=== PATIENT | female | born 1970 | race Caucasian/White ===

== ENCOUNTER 2023-07-09 08:03 | Day surgery (SDC) | payer OTHER ==
--- NOTE | 2023-07-02 15:26 | HP ---
DATE OF SURGERY: 07/09/2023 HISTORY OF PRESENT ILLNESS: The patient is a 53-year-old female presents for endoscopy. She had a colonoscopy about 2014 with some polyps on it. She has no symptoms at this time. She had a heart attack with some stent placement. She has been off her Brilinta per Dr. Levine. She did state that on last scope they did not get to the cecum but not for sure of that. She has had a couple inpatient episodes of diverticulitis in the past. PAST MEDICAL HISTORY: Coronary artery disease. Myocardial infarction. Diabetes. Hypertension. PAST SURGICAL HISTORY: Cholecystectomy. Hysterectomy. Left leg surgery. section. Cardiac stent. ALLERGIES: NKDA. ADHESIVE TAPE. MEDICATIONS: Jardiance, Lopressor, Metformin, lisinopril. FAMILY HISTORY: Diabetes. SOCIAL HISTORY: Former smoker, occasional alcohol. REVIEW OF SYSTEMS: CONSTITUTIONAL: Denies fever or chills. CHEST: Denies shortness of breath. CVS: Denies chest pain. ABDOMEN: Denies abdominal pain. PHYSICAL EXAMINATION: GENERAL: No acute distress. CHEST: Nonlabored. No shortness of breath. CVS: Regular rate and rhythm. ABDOMEN: Soft. IMPRESSION: Screening. PLAN: Colonoscopy with Dr. Gilberto Colunga. As dictated by Dominique Hong NP.
[2023-07-09] MEDS ORDERED: Lactated Ringers 1,000 ML IV ONE (08:23)
[2023-07-09] MEDS ORDERED: Lactated Ringers 1,000 ML IV SCH (08:30)
[2023-07-09] MEDS ORDERED: DIPRIVAN 200 MG/20 ML IV ONE ×2 (10:29→10:51)
[2023-07-09] MEDS ORDERED: Versed 2 MG/2 ML Injection ONE (10:29)
[2023-07-09] MEDS ORDERED: SUBLIMAZE 100 MCG/2 ML ONE (10:45)
[2023-07-09] MEDS ORDERED: GlucaGen 1 MG ONE (10:46)
[2023-07-09] MEDS ORDERED: PHENYLEPHRINE HCL ONE (11:09)
--- NOTE | 2023-07-09 11:32 | OP ---
SURGERY DATE/TIME: 07/09/2023 1042 PREOPERATIVE DIAGNOSIS: Screening. POSTOPERATIVE DIAGNOSIS: Two polyps. PROCEDURE: Colonoscopy complete to cecum with hot polypectomy of a 1 cm splenic polyp and hot snare polypectomy of 1.5 cm sigmoid polyp. SURGEON: Gilberto Colunga M.D. MECHANICAL ENGINEER: Julissa Davis, Medical Student III. ANESTHESIA: General. COMPLICATIONS: None. CONDITION: Stable. DESCRIPTION OF PROCEDURE: Patient taken to endoscopy. Left lateral decubitus position. Anal digital examination satisfactory. Scope introduced. Scope advanced to the cecum. Base of the cecum, ileocecal valve, appendiceal orifice satisfactory. Ascending, hepatic, transverse, splenic flexure 1 cm taken with hot biopsy forceps to extinction. Coming down the mid sigmoid there was a polypoid pedunculated lesion about 1.5 cm taken with hot snare this was totally retrieved. Sigmoid, rectum, anus satisfactory. The patient tolerated the procedure satisfactory.
[2023-07-09 11:56] VITALS: RESP 18
[2023-07-09 12:07] VITALS: BP 132/76; PULSE 67; TEMP 98.4; O2SAT 95
== END 2023-07-09 12:20 | disposition home or self-care (01) ==
LOC: SDC 08:03
PROVIDERS: ATTEND Surgery
DX: Z12.11 Encounter for screening for malignant neoplasm of colon (principal); D12.3 Benign neoplasm of transverse colon; D12.5 Benign neoplasm of sigmoid colon; E11.9 Type 2 diabetes mellitus without complications
CPT/HCPCS: 82947; 93005; J1610; J2250; J2371; J2704; J3010

== ENCOUNTER 2024-06-29 13:41 | Emergency (ER) | payer OTHER ==
[2024-06-29 14:44] VITALS: RESP 16; TEMP 97
[2024-06-29 14:53] VITALS: PULSE 71; O2SAT 98
[2024-06-29] MEDS ORDERED: CLEOCIN 150 MG CAPSULE ONE (15:31)
[2024-06-29 15:32] VITALS: BP 108/72
[2024-06-29] MEDS: CLEOCIN 150 MG CAPSULE PO ONE (15:33)
--- NOTE | 2024-06-29 15:44 | ERPHSYRPT ---
- History of Present Illness Time Seen by Provider: 06/29/24 13:47 Source: patient Exam Limitations: no limitations Patient Subjective Stated Complaint: Pt reports approx 3-4 days ago a "wound" appeared to right upper side under right breast. States night before last wound "busted open" and drained which helped decrease pain. However now pt has red streaking. Triage Nursing Assessment: Pt alert and oriented x3. Respirations easy/nonlabored. Skin w/p/d. Ambulated to ED cot without difficulty. Scabbed wound to right side of right breast approx 2cm in length, no drainage at this time. Red streaking approx 6cm in length. Physician History: 54-year-old female with history of diabetes mellitus, coronary artery disease with stenting, arthritis presented in the ER with complaints of right upper lateral chest wall area boil/swelling which appeared 3 to 4 days ago and busted with drainage of pus while she was asleep. It started to improve but since yesterday she noticed some red streaking going around. No fever or chills reported. No history of MRSA. Scabbed area with some induration around the right upper lateral chest wall/lateral end of the breast. Minimal tenderness. Mild streaking. Minimal increase in the temperature. No fluctuation and no discharge. I will treat with clindamycin and recommended outpatient follow-up. Do not think patient needs I&D or any other workup. Her glucose is poorly controlled 128 random. Discussed signs symptoms of worsening needing return to ER which she seems understanding. Stable for discharge. Allergies/Adverse Reactions: adhesive tape Allergy (Unknown, Verified 06/29/24 14:27) Home Medications: Atorvastatin Calcium [Lipitor] 20 mg PO HS 05/14/16 [History] Metformin HCl 500 mg [Glucophage 500 MG] 500 mg PO BID 05/14/16 [History] Cholecalciferol (Vitamin D3) [Vitamin D] 1 tab PO WEEKLY 06/02/23 [History] Empagliflozin [Jardiance] 25 mg PO DAILY 06/02/23 [History] Losartan Potassium 50 mg [Cozaar 50 MG] 25 mg PO DAILY 06/02/23 [History] Metoprolol Succinate 100 mg [Toprol Xl 100 MG] 500 mg PO BID 06/02/23 [History] Sitagliptin Phosphate 50 MG [Januvia 50 MG] 100 mg PO DAILY 06/02/23 [History] Apixaban [Eliquis] 1 tab PO BID 06/29/24 [History] Hx Tetanus, Diphtheria Vaccination/Date Given: Yes Hx Influenza Vaccination/Date Given: Yes Hx Pneumococcal Vaccination/Date Given: No Travel Risk - International Travel Have you traveled outside of the country in past 3 weeks: No - Emerging Infectious Disease Are you exhibiting symptoms associated with any current EIDs: No - Review of Systems Constitutional: No Symptoms Ears, Nose, & Throat: No Symptoms Respiratory: No Symptoms Cardiac: No Symptoms Musculoskeletal: Arthralgias, Joint Pain Skin: Rash, Skin Lesions Neurological: No Symptoms Psychological: No Symptoms Hematologic/Lymphatic: No Symptoms - Past Medical History Pertinent Past Medical History: Yes Neurological History: Peripheral Neuropathy, Other ENT History: No Pertinent History, Other Cardiac History: Arrhythmia, Coronary Artery Disease, Hypertension, Myocardial Infarction ([place]) Respiratory History: No Pertinent History Endocrine Medical History: Diabetes Type II Musculoskeletal History: No Pertinent History GI Medical History: Diverticulitis History: No Pertinent History Psycho-Social History: No Pertinent History Female Reproductive Disorders: No Pertinent History Other Medical History: chronic inflammatory poly neuritis - Past Surgical History Past Surgical History: Yes Neuro Surgical History: No Pertinent History Cardiac: No Pertinent History Respiratory: No Pertinent History Gastrointestinal: Cholecystectomy Genitourinary: No Pertinent History Musculoskeletal: No Pertinent History Female Surgical History: Hysterectomy, Section, Tubal Ligation Other Surgical History: LT LEG--FX FROM FALL Significant Family History: no pertinent family hx - Female History Hx Last Menstrual Period: 2014 Hx Now: No - Social History Smoking Status: Former smoker Exposure to second hand smoke: No Alcohol Use: None Drug Use: marijuana Patient Lives Alone: No - Social Determinants of Health Will the patient participate in the screening: Declined to provide - Nursing Vital Signs Nursing Vital Signs: Initial Vital Signs Temperature 97 F 06/29/24 14:27 Pulse Rate 75 06/29/24 14:27 Respiratory Rate 16 06/29/24 14:27 Blood Pressure 114/74 06/29/24 14:27 O2 Sat by Pulse Oximetry 100 06/29/24 14:27 Pain Scale Pain Intensity 6 - Physical Exam General Appearance: no apparent distress Ears, Nose, Throat Exam: normal ENT inspection Neck Exam: normal inspection, full range of motion Respiratory Exam: normal breath sounds, lungs clear Cardiovascular Exam: regular rate/rhythm, normal heart sounds Extremity Exam: normal inspection, normal range of motion Neurologic Exam: alert, oriented x 3, cooperative Skin Exam: normal color, rash (4 x 2 cm area with induration with central scabbing, no fluctuation, firm consistency, mild increased temperature, minimal tenderness.) SpO2 Interpretation: normal SpO2: 98 O2 Delivery: Room Air Ordered Tests: Active Orders 24 hr Category Date Time Status POCT GLUCOSE Stat Lab 06/29/24 14:55 Completed Medication Summary Discontinued Medications Generic Name Dose Route Start Last Admin Trade Name Pradip PRN Reason Stop Dose Admin Clindamycin HCl 300 mg 06/29/24 15:29 06/29/24 15:33 Clindamycin Hcl 150 Mg Capsule PO 06/29/24 15:30 300 mg STAT ONE Administration Clindamycin HCl Confirm 06/29/24 15:31 Clindamycin Hcl 150 Mg Capsule Administered 06/29/24 15:32 Dose 300 mg .ROUTE .[email or web address] ONE Lab/Rad Data: Laboratory Results 06/29/24 Range/Units 14:55 POC Glucometer 121 H (74 to 106) mg/dL - Progress Progress: unchanged Progress Note: 06/29/24 15:42 54-year-old female with history of diabetes mellitus, coronary artery disease with stenting, arthritis presented in the ER with complaints of right upper lateral chest wall area boil/swelling which appeared 3 to 4 days ago and busted with drainage of pus while she was asleep. It started to improve but since yesterday she noticed some red streaking going around. No fever or chills reported. No history of MRSA. Scabbed area with some induration around the right upper lateral chest wall/lateral end of the breast. Minimal tenderness. Mild streaking. Minimal increase in the temperature. No fluctuation and no discharge. I will treat with clindamycin and recommended outpatient follow-up. Do not think patient needs I&D or any other workup. Her glucose is poorly controlled 128 random. Discussed signs symptoms of worsening needing return to ER which she seems understanding. Stable for discharge. Counseled pt/family regarding: lab results, diagnosis, need for follow-up Medical Desision Making - Diagnostic Testing Diagnostic test were ordered, analyzed, and reviewed by me: Yes - Risk of complications The pt has a mod risk of morbidity or mortality based on: Need for prescription drug management - Departure Departure Disposition: Home Clinical Impression: Abscess or cellulitis of chest wall Condition: Stable Critical Care Time: No Referrals: IAN WRIGHT [Primary Care Provider] - Follow up with PCP 1 day Instructions: Skin abscess Additional Instructions: Take Tylenol as needed. Follow-up with primary care for reevaluation. Return to ER for increasing pain swelling redness discharge or if develop fever chills etc. Prescriptions: clindamycin HCL [Clindamycin HCl] 300 mg PO QID 7 Days #28 cap
== END 2024-06-29 15:51 | disposition home or self-care (01) ==
LOC: ED 13:41
DX: L02.213 Cutaneous abscess of chest wall (principal); I10 Essential (primary) hypertension; E11.42 Type 2 diabetes mellitus with diabetic polyneuropathy; Z79.84 Long term (current) use of oral hypoglycemic drugs; Z79.01 Long term (current) use of anticoagulants; Z79.899 Other long term (current) drug therapy
CPT/HCPCS: 82947; 99283; A9270-GY